=== PATIENT | female | born 1980 | race African-American/Black ===

== ENCOUNTER 2017-08-16 11:37 | Emergency (ER) | payer SELFPAY ==
[~2017-08-16] VITALS: Ht 165.1 cm; Wt 54.0 kg
[2017-08-16 18:38] VITALS: BP 130/67
== END 2017-08-16 18:39 | disposition home or self-care (01) ==
LOC: ER 12:30
DX: S00.03XA Contusion of scalp, initial encounter (principal); W01.0XXA Fall on same level from slipping, tripping and stumbling without subsequent striking against object, initial encounter; Y93.42 Activity, yoga; Y92.89 Other specified places as the place of occurrence of the external cause; Y99.8 Other external cause status
CPT/HCPCS: 70450; 81025; 99284